=== PATIENT | female | born 1945 | race Caucasian/White ===

== ENCOUNTER 2019-07-18 06:54 | Inpatient (IN) | payer MEDICARE, MEDICAID ==
[~2019-07-18] VITALS: Ht 154.9 cm; Wt 52.6 kg
[2019-07-18] MEDS: IPRATROPIUM BROMIDE (0.02%) 0.5MG/2.5ML NEB HHN SCH ×2 (01:49→14:04)
[2019-07-18] MEDS ORDERED: IPRATROPIUM BROMIDE (0.02%) 0.5MG/2.5ML NEB HHN STA (07:17)
[2019-07-18] MEDS ORDERED: METHYLPREDNISOLONE SOD SUCC 125 MG/2 ML VIAL IV STA (07:17)
[2019-07-18] MEDS ORDERED: ALBUTEROL (0.083%) 2.5MG/3ML NEB HHN STA (07:17)
[2019-07-18 07:25] LABS: HEMATOCRIT. 40.5 % (36.0-48.0); HEMOGLOBIN. 13.9 g/dL (12.0-16.0); MEAN CORPUSCULAR VOLUME 96.4 fL (81.0-99.0); MEAN PLATELET VOLUME 7.7 fl (7.4-10.4); PLATELET 336 x1000/uL (130-400); RED CELL DISTRIBUTION WIDTH 13.4 % (11.6-14.6)
[2019-07-18 07:33] LABS: CHLORIDE 100 mEq/L (98-107)
[2019-07-18 07:52] LABS: PLATELET ESTIMATE NORMAL
[2019-07-18] MEDS ORDERED: ASPIRIN 81MG TABLET PO ONE (08:45)
[2019-07-18 09:41] LABS: BG BASE EXCESS -5.8 mmol/L (-2.0-2.0); BG CARBOXYHEMOGLOBIN 0.3 % (0.5-1.5); BG FRACTION INSPIRED OXYGEN 36; BG HCO3 ACT 19.9 mmol/L (22.0-26.0); BG METHEMOGLOBIN 0.3 % (0.0-1.5); BG OXYHEMOGLOBIN 98.4 % (94.0-97.0); BG PH 7.315 (7.350-7.450); BG PO2 196.1 mmHg (75.0-100.0); BG SAMPLE SITE RIGHT BRACHIAL; BG TOTAL HEMOGLOBIN 13.6 g/dL (12.0-18.0); BG VENT MODE NASAL CANNULA
[2019-07-18] MEDS ORDERED: ONDANSETRON HCL 4MG/2ML INJ IV PRN (09:45)
[2019-07-18] MEDS ORDERED: DEXTROSE 50% WATER 50ML SYRINGE IV PRN (09:45)
[2019-07-18] MEDS: ENOXAPARIN 40MG/0.4ML SYR SUBCUT SCH (10:52)
[2019-07-18] MEDS ORDERED: LEVOFLOXACIN 500MG PREMIX 100 ML IV SCH (11:00)
[2019-07-18] MEDS: BLOOD SUGAR DIAGNOSTIC STRIP TEST SCH ×3 (11:04→21:42)
[2019-07-18] MEDS: BENZONATATE 100MG CAPSULE PO PRN (11:18)
[2019-07-18] MEDS: ACETAMINOPHEN 325MG TABLET PO PRN (11:18)
[2019-07-18] MEDS: INSULIN LISPRO 100 UNITS/ML SUBCUT SCH ×3 (11:30→21:46)
[2019-07-18 13:26] LABS: CLARITY URINE CLEAR (CLEAR); COLOR URINE YELLOW (YELLOW); KETONES URINE NEGATIVE (NEGATIVE); LEUKOCYTE ESTERASE URINE NEGATIVE (NEGATIVE); NITRITE URINE NEGATIVE (NEGATIVE); OCCULT BLOOD URINE TRACE (NEGATIVE); PH URINE 5.5 (4.5-8.0); PROTEIN URINE 2+ (NEGATIVE); SPECIFIC GRAVITY URINE 1.019 (1.005-1.030); UROBILINOGEN URINE 0.2 E.U./dL (0.2-1.0)
[2019-07-18 15:00] VITALS: BP 122/77
[2019-07-18 15:39] LABS: BG BASE EXCESS -5.2 mmol/L (-2.0-2.0); BG CARBOXYHEMOGLOBIN 0.3 % (0.5-1.5); BG DEOXYHEMOGLOBIN 3.2 % (0.0-5.0); BG FRACTION INSPIRED OXYGEN 28; BG HCO3 ACT 19.8 mmol/L (22.0-26.0); BG METHEMOGLOBIN 0.1 % (0.0-1.5); BG OXYGEN SATURATION 96.8 % (92.0-98.5); BG OXYHEMOGLOBIN 96.4 % (94.0-97.0); BG PH 7.346 (7.350-7.450); BG PO2 87.2 mmHg (75.0-100.0); BG SAMPLE SITE RIGHT BRACHIAL; BG TOTAL HEMOGLOBIN 13.8 g/dL (12.0-18.0); BG VENT MODE NASAL CANNULA
[2019-07-18 16:00] VITALS: BP 157/72
[2019-07-18] MEDS ORDERED: ALBUTEROL 6.7GM HFA INHALER ORI SCH (16:00)
[2019-07-18] MEDS: METHYLPREDNISOLONE SOD SUCC 40 MG/ML VIAL IV SCH (18:00)
[2019-07-18] MEDS ORDERED: SITA50TA3 PO (19:35)
[2019-07-18] MEDS ORDERED: ASPI-1497 PO (19:35)
[2019-07-18] MEDS ORDERED: LOSA50TA41 PO (19:35)
[2019-07-18] MEDS ORDERED: METF-517 MT (19:35)
[2019-07-18 20:00] VITALS: BP 99/37
[2019-07-18] MEDS: INSULIN GLARGINE UD 100 UNITS/ML SYR SUBCUT SCH (21:46)
[2019-07-18] MEDS: SODIUM CHLORIDE 0.9% 1,000 ML IV SCH (21:47)
[2019-07-19] VITALS: BP 98/48
[2019-07-19] MEDS: METHYLPREDNISOLONE SOD SUCC 40 MG/ML VIAL IV SCH ×2 (02:10→15:46)
[2019-07-19 04:00] VITALS: BP 101/58
[2019-07-19] MEDS: BLOOD SUGAR DIAGNOSTIC STRIP TEST SCH ×4 (06:16→21:10)
[2019-07-19] MEDS: INSULIN LISPRO 100 UNITS/ML SUBCUT SCH ×4 (06:17→21:10)
[2019-07-19] MEDS: SODIUM CHLORIDE 0.9% 1,000 ML IV SCH ×2 (06:20→18:10)
[2019-07-19 08:00] VITALS: BP 112/45
[2019-07-19] MEDS: ENOXAPARIN 40MG/0.4ML SYR SUBCUT SCH (08:49)
[2019-07-19] MEDS: BENZONATATE 100MG CAPSULE PO PRN ×2 (08:51→17:11)
[2019-07-19] MEDS: IPRATROPIUM BROMIDE (0.02%) 0.5MG/2.5ML NEB HHN SCH ×2 (09:17→15:18)
[2019-07-19] MEDS: INSULIN GLARGINE UD 100 UNITS/ML SYR SUBCUT SCH ×2 (10:57→21:10)
[2019-07-19] MEDS: LEVOFLOXACIN 250MG PREMIX 50 ML IV SCH (10:57)
[2019-07-19 11:39] VITALS: BP 105/45
[2019-07-19] MEDS: ACETAMINOPHEN 325MG TABLET PO PRN (11:52)
[2019-07-19 16:00] VITALS: BP 107/50
[2019-07-19 19:03] LABS: BASOPHILS % 0.2 % (0.0-2.0); EOSINOPHILS % 0.2 % (0.0-5.0); HEMATOCRIT. 38.3 % (36.0-48.0); HEMOGLOBIN. 12.7 g/dL (12.0-16.0); LYMPHOCYTES % 8.5 % (20.0-50.0); MEAN CORPUSCULAR HEMOGLOBIN 31.7 pg (28.0-32.0); MEAN CORPUSCULAR VOLUME 95.8 fL (81.0-99.0); MEAN PLATELET VOLUME 8.1 fl (7.4-10.4); MONOCYTES % 4.9 % (2.0-8.0); NEUTROPHILS % 86.2 % (40.0-76.0); PLATELET 339 x1000/uL (130-400); RED CELL DISTRIBUTION WIDTH 13.1 % (11.6-14.6)
[2019-07-19 19:10] LABS: CHLORIDE 100 mEq/L (98-107)
[2019-07-19 20:00] VITALS: BP 120/52
[2019-07-19] MEDS: ALBUTEROL (0.083%) 2.5MG/3ML NEB HHN SCH (21:15)
[2019-07-20] VITALS: BP 108/41
[2019-07-20] MEDS: ALBUTEROL (0.083%) 2.5MG/3ML NEB HHN SCH ×3 (02:19→11:43)
[2019-07-20 04:00] VITALS: BP 129/66
[2019-07-20] MEDS: BENZONATATE 100MG CAPSULE PO PRN (04:46)
[2019-07-20] MEDS: SODIUM CHLORIDE 0.9% 1,000 ML IV SCH ×3 (04:46→23:15)
[2019-07-20] MEDS: METHYLPREDNISOLONE SOD SUCC 40 MG/ML VIAL IV SCH ×2 (04:46→14:37)
[2019-07-20] MEDS: INSULIN LISPRO 100 UNITS/ML SUBCUT SCH ×4 (07:15→21:37)
[2019-07-20] MEDS: BLOOD SUGAR DIAGNOSTIC STRIP TEST SCH ×4 (07:22→20:41)
[2019-07-20 08:00] VITALS: BP 122/57
[2019-07-20] MEDS: ENOXAPARIN 40MG/0.4ML SYR SUBCUT SCH (09:15)
[2019-07-20] MEDS: INSULIN GLARGINE UD 100 UNITS/ML SYR SUBCUT SCH ×2 (10:37→21:38)
[2019-07-20] MEDS: LEVOFLOXACIN 250MG PREMIX 50 ML IV SCH (10:44)
[2019-07-20 12:00] VITALS: BP 126/57
[2019-07-20 12:43] LABS: BG BASE EXCESS -3.1 mmol/L (-2.0-2.0); BG CARBOXYHEMOGLOBIN 0.1 % (0.5-1.5); BG DEOXYHEMOGLOBIN 5.5 % (0.0-5.0); BG HCO3 ACT 21.9 mmol/L (22.0-26.0); BG METHEMOGLOBIN 0.1 % (0.0-1.5); BG OXYGEN SATURATION 94.5 % (92.0-98.5); BG OXYHEMOGLOBIN 94.3 % (94.0-97.0); BG PH 7.367 (7.350-7.450); BG PO2 71.5 mmHg (75.0-100.0); BG SAMPLE SITE RIGHT BRACHIAL; BG TOTAL HEMOGLOBIN 13.1 g/dL (12.0-18.0); BG VENT MODE ROOM AIR
[2019-07-20] MEDS: BENZONATATE 100MG CAPSULE PO SCH ×2 (14:37→21:39)
[2019-07-20] MEDS ORDERED: BUDESONIDE 0.5MG/2ML NEB HHN SCH (15:00)
[2019-07-20 16:00] VITALS: BP 106/47
[2019-07-20 20:00] VITALS: BP 122/46
[2019-07-20] MEDS: IPRATROPIUM/ALBUTEROL 0.5-3(2.5)MG/3ML NEB HHN SCH (20:26)
[2019-07-20] MEDS: FAMOTIDINE 20MG/2ML VIAL IV SCH (20:41)
[2019-07-20] MEDS ORDERED: GUAIFENESIN-DM 200MG-20MG/10ML UDC PO SCH (21:00)
[2019-07-21] VITALS: BP 159/87
[2019-07-21] MEDS: IPRATROPIUM/ALBUTEROL 0.5-3(2.5)MG/3ML NEB HHN SCH ×4 (00:10→16:17)
[2019-07-21] MEDS: METHYLPREDNISOLONE SOD SUCC 40 MG/ML VIAL IV SCH (03:34)
[2019-07-21 04:00] VITALS: BP 124/43
[2019-07-21] MEDS: BLOOD SUGAR DIAGNOSTIC STRIP TEST SCH ×2 (06:10→11:45)
[2019-07-21] MEDS: INSULIN LISPRO 100 UNITS/ML SUBCUT SCH ×2 (06:17→13:15)
[2019-07-21] MEDS: BENZONATATE 100MG CAPSULE PO SCH (06:24)
[2019-07-21] MEDS: FAMOTIDINE 20MG/2ML VIAL IV SCH (08:53)
[2019-07-21] MEDS: ENOXAPARIN 40MG/0.4ML SYR SUBCUT SCH (08:54)
[2019-07-21] MEDS: SODIUM CHLORIDE 0.9% 1,000 ML IV SCH (08:55)
[2019-07-21] MEDS ORDERED: LORATADINE 10MG TABLET PO SCH (09:00)
[2019-07-21] MEDS: LEVOFLOXACIN 250MG PREMIX 50 ML IV SCH (10:41)
[2019-07-21] MEDS: INSULIN GLARGINE UD 100 UNITS/ML SYR SUBCUT SCH (10:41)
[2019-07-21 12:00] VITALS: BP 135/58
[2019-07-21] MEDS ORDERED: ALBU18HF2 IH (13:44)
[2019-07-21] MEDS ORDERED: LEVO500T2 MT (13:44)
[2019-07-21] MEDS ORDERED: FLUT1DIS3 INH (13:44)
[2019-07-21] MEDS ORDERED: MED4 MT (13:44)
[2019-07-21 15:23] VITALS: BP 132/65
[2019-07-22] MEDS ORDERED: PREDNISONE 20MG TABLET PO SCH (09:00)
== END 2019-07-21 17:25 | disposition home health service (06) | DRG 871 ==
LOC: ER 07:11 → EDBD 07:11 → MICUSO 08:43 → EDBEDREQ 09:02 → 5WST 15:16
PROVIDERS: ADMIT Internal Medicine; ATTEND Internal Medicine
DX: A41.9 Sepsis, unspecified organism (principal); J96.01 Acute respiratory failure with hypoxia; J18.9 Pneumonia, unspecified organism; J45.21 Mild intermittent asthma with (acute) exacerbation; E87.1 Hypo-osmolality and hyponatremia; J44.9 Chronic obstructive pulmonary disease, unspecified; F03.90 Unspecified dementia, unspecified severity, without behavioral disturbance, psychotic disturbance, mood disturbance, and anxiety; Z20.828 Contact with and (suspected) exposure to other viral communicable diseases; E11.9 Type 2 diabetes mellitus without complications
CPT/HCPCS: 36415; 36600; 71045; 80048; 80053; 81003; 82375; 82805; 82962; 83036; 83880; 84145; 84484; 85025; 93005; 94618; 99285; J1650; J1815; J1956; J2920; J2930; J3490; J7030; J7626